=== PATIENT | male | born 1980 | race Two or more races ===

== ENCOUNTER 2016-12-19 14:53 | Emergency (ER) | payer SELFPAY ==
[~2016-12-19] VITALS: Ht 175.3 cm; Wt 77.1 kg
[2016-12-19 15:08] VITALS: BP 154/82
--- NOTE | 2016-12-19 15:53 | NUR ---
PATIENT PRESENTS TO ED WITH RIGHT FLANK PAIN RADIATING TO GROIN AREA X 1 DAY . PT STATES HE WAS MOVING SOME FURNITURE YESTERDAY . DENIES N/V/D; SKIN IS PINK/WARM/DRY; AAOX4 WITH EVEN AND STEADY GAIT; PT DENIES ANY FEVER, CP, SOB, OR COUGH AT THIS TIME; PATIENT STATES PAIN OF 0/10 AT THIS TIME; VSS; PATIENT POSITIONED FOR COMFORT; HOB ELEVATED;; BED DOWN. ER MD MADE AWARE OF PT STATUS.
[2016-12-19] MEDS ORDERED: NACL 0.9% 1,000 ML IV SCH (17:04)
[2016-12-19] MEDS ORDERED: KETOROLAC 30 MG/ML VIAL IVP ONE (17:05)
--- NOTE | 2016-12-19 17:31 | NUR ---
PATIENT RESTING IN BED
--- NOTE | 2016-12-19 18:32 | NUR ---
Patient discharged with v/s stable. Written and verbal after care instructions given and explained. Patient alert, oriented and verbalized understanding of instructions. Ambulatory with steady gait. All questions addressed prior to discharge. ID band removed. Patient advised to follow up with PMD. Rx of FLOMAX, MOTRIN, NORCO given. Patient educated on indication of medication including possible reaction and side effects. Opportunity to ask questions provided and answered.
[2016-12-19 18:34] VITALS: BP 150/90
== END 2016-12-19 18:32 | disposition home or self-care (01) ==
LOC: MED 14:53
DX: N20.0 Calculus of kidney (principal)
CPT/HCPCS: 36415; 74176; 80053; 81001; 83690; 85025; 96361; 96374; 99285; J1885; J7030